=== PATIENT | male | born 1980 | race Caucasian/White ===

== ENCOUNTER 2018-12-19 08:07 | Outpatient (CLI) | payer BC ==
--- NOTE | 2018-12-19 09:59 | MRI ---
MRI CERVICAL SPINE WITHOUT CONTRAST: Date: 12/19/18 HISTORY: Neck pain radiating down left shoulder, arm, and elbow, with numbness in the fingers. FINDINGS: There is loss of cervical lordosis. The vertebral body height and marrow signal are maintained. There are multilevel disc osteophyte complexes and uncovertebral hypertrophic changes, most prominent at C 3-4 level. These result in moderate right-sided neural foraminal stenosis at C2-3 and C3-4 levels, an d mild left-sided neural foraminal stenosis at C3-4 level. There is impingement of the anterior theca l sac at C5-6 and C6-7 levels. No cord impingement or compression is seen. The cervical spinal cord d emonstrates normal course, caliber, and signal. No tonsillar herniation is seen. The paraspinal muscu lature is normal. IMPRESSION: Cervical spondylosis with right-sided moderate neural foraminal stenosis at C2-3 and C3-4 levels, and mild left-sided neural foraminal stenosis at C3-4 level. POS: [facility]
== END 2018-12-19 08:08 | disposition home or self-care (01) ==
LOC: SCSMRI 08:07
PROVIDERS: ATTEND Family Medicine
DX: G56.00 Carpal tunnel syndrome, unspecified upper limb (principal); M47.812 Spondylosis without myelopathy or radiculopathy, cervical region; M48.02 Spinal stenosis, cervical region
CPT/HCPCS: 72141

== ENCOUNTER 2019-04-12 08:13 | Outpatient (CLI) | payer BC ==
[2019-04-12 09:28] LABS: #Basophils 0.1 thou/uL (0.0-0.2); #Eosinphils 0.1 thou/uL (0.0-0.7); #Lymphocytes 2.6 thou/uL (1.20-3.40); #Monocytes 0.6 thou/uL (0.11-0.59); #Neutrophils 4.1 thou/uL (1.40-6.50); %Basophils 0.7 % (0.0-1.0); %Eosinophils 1.3 % (0.0-10.0); %Lymphocytes 34.8 % (21.0-51.0); %Monocytes 8.1 % (0.0-10.0); %Neutrophils 55.1 % (42.0-75.0); Mean Corpuscular HGB CONC 34.5 g/dL (32.0-36.0); Mean Corpuscular Hemoglobin 30.7 pg (27.0-31.0); Mean Corpuscular Volume 88.9 fL (78.0-98.0); Mean Platelet Volume 7.1 fL (7.4-10.4); Platelet Count 333 thou/uL (130-400); RBC Distribution Width 11.6 % (11.5-14.5); Red Blood Cell (RBC) Count 4.88 mill/uL (4.70-6.10); White Blood Cell (WBC) Count 7.3 thou/uL (4.8-10.8)
== END 2019-04-12 08:14 | disposition home or self-care (01) ==
LOC: LABBT 08:13
PROVIDERS: ATTEND Orthopaedic Surgery
DX: Z01.812 Encounter for preprocedural laboratory examination (principal); G56.21 Lesion of ulnar nerve, right upper limb
CPT/HCPCS: 85025

== ENCOUNTER 2019-04-14 06:40 | Day surgery (SDC) | payer BC ==
[2019-04-12 08:38] VITALS: BMI 29.2
[2019-04-14] MEDS ORDERED: Midazolam HCl 2 mg/2 ml Vial ONE (08:19)
[2019-04-14] MEDS ORDERED: Fentanyl 100 MCG/2 ML VIAL ONE ×4 (09:24→11:16)
[2019-04-14] MEDS ORDERED: Bupivacaine PF 0.5% 30 ML VIAL ONE (09:27)
[2019-04-14] MEDS ORDERED: Morphine 4 MG/ML VIAL ONE ×2 (10:46→11:06)
[2019-04-14] MEDS ORDERED: PROPOFOL 200 MG/20 ML VIAL ONE (11:05)
[2019-04-14] MEDS ORDERED: ePHEDrine/0.9% NaCl/PF SYRINGE 50 mg/10 ml ONE (11:05)
[2019-04-14] MEDS ORDERED: Lidocaine 1% PF 5 ML VIAL ONE (11:05)
[2019-04-14] MEDS ORDERED: Ondansetron PF 4 MG/2 ML Vial ONE (11:05)
[2019-04-14] MEDS ORDERED: HYDROcodone/Acetaminophen 5/325 mg Tablet ONE (11:55)
--- NOTE | 2019-04-14 14:58 | OP ---
DATE OF PROCEDURE: 04/14/2019 PREOPERATIVE DIAGNOSIS: Left cubital tunnel syndrome. POSTOPERATIVE DIAGNOSIS: Left cubital tunnel syndrome. PROCEDURES PERFORMED: 1. Left ulnar nerve release and transposition. 2. He was placed in a long-arm splint, left upper extremity. REFERRAL AND INFORMATION AIDE: None. ANESTHESIA: He had a general anesthetic. DISPOSITION: He went to recovery room in stable condition. INDICATIONS: This is a 38-year-old male, who was found to have significant cubital tunnel syndrome on EMG/NCV. At this time, he opted to have surgical release performed. DESCRIPTION OF PROCEDURE: After all appropriate consent forms were explained and signed, he was taken back to the operative room and at this time was given a general anesthetic. Once the level of anesthesia was appropriate, a tourniquet was placed on the left arm and the left upper extremity was prepped and draped in standard surgical fashion. The arm was then exsanguinated and the tourniquet was taken to 250 mmHg. Using loupe magnification, a 15 blade was used to cut down through skin only. Bipolar cautery was used to coagulate any brisk venous bleeding. From here, scissor dissection was used to find the ulnar nerve and release it proximally up the brachium and distally to the first motor branch. There were no masses noted and the nerve itself was found to be in good condition. Once this was done, we placed a couple of 0 Vicryl sutures to close our cubital tunnel and we then placed a moist Ray-Jumana sponge into the wound. Tourniquet was let down. Hemostasis was achieved with the bipolar. We then thoroughly irrigated and dried. Anterior and posterior skin flaps were then infiltrated with Marcaine for postop pain relief and at this time, 2-0 Vicryl and nylon sutures were used to close the skin. A bulky sterile soft tissue dressing was applied and then a long-arm posterior splint was made for the left upper extremity. The patient was then awakened. He was taken to the recovery room in stable condition. All counts were correct at the end of the case and he did receive preoperative IV antibiotics. Job ID: [id number]
== END 2019-04-14 13:10 | disposition home or self-care (01) ==
LOC: SDC 06:40
PROVIDERS: ATTEND Orthopaedic Surgery
PROC: 01N40ZZ Release Ulnar Nerve, Open Approach (ICD-10-PCS; principal; 2019-04-14)
DX: G56.22 Lesion of ulnar nerve, left upper limb (principal); G56.00 Carpal tunnel syndrome, unspecified upper limb; Z79.1 Long term (current) use of non-steroidal anti-inflammatories (NSAID); Z79.899 Other long term (current) drug therapy
CPT/HCPCS: J0690; J2001; J2250; J2270; J2405; J2704; J3010; S0020

== ENCOUNTER 2020-03-18 08:02 | Outpatient (CLI) | payer BC ==
--- NOTE | 2020-03-18 09:48 | MRI ---
MRI OF THE LEFT ELBOW WITHOUT CONTRAST: Date: 03/18/2020 INDICATION: History of lateral epicondylitis, worsening over last year. COMPARISON: None. FINDINGS: There is a moderate intratendinous delaminating tear involving the common extensor origin at the late ral epicondyle consistent with changes of moderate to severe lateral epicondylitis. The ulnar collate ral ligament, lateral collateral ligament, and lateral ulnar collateral ligament are intact. Biceps b rachialis and brachialis insertions are normal appearing. The triceps insertion appears within normal limits. Common flexor origin is normal appearing. There is postprocedural change of an ulnar nerve t ransposition. The ulnar nerve demonstrates some mild thickening and increased T2 signal at the level of the medial humeral epicondyle and returns to a normal caliber nerve and signal intensity in the le quang of the proximal forearm. No bone marrow signal abnormality is evident. IMPRESSION: 1. 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 2. Mild increased diameter and abnormal signal intensity involving the transposed ulnar nerve at the level of the medial humeral epicondyle suspicious for some residual ulnar neuritis. POS: [facility]
== END 2020-03-18 08:03 | disposition home or self-care (01) ==
LOC: SCSMRI 08:02
PROVIDERS: ATTEND Orthopaedic Surgery Hand Surgery
DX: M77.12 Lateral epicondylitis, left elbow (principal); R93.6 Abnormal findings on diagnostic imaging of limbs

== ENCOUNTER 2022-06-16 08:10 | Outpatient (CLI) | payer BC | END 2022-06-16 08:11 | disposition home or self-care (01) | LOC: SCSMRI 08:10 | PROVIDERS: ATTEND Orthopaedic Surgery | DX: M23.91 Unspecified internal derangement of right knee (principal); M22.2X1 Patellofemoral disorders, right knee ==

== ENCOUNTER → 2022-09-21 | Outpatient (CLI) | payer BC | LOC: SLEEPLAB 17:30 | PROVIDERS: ATTEND Family Medicine | DX: G47.33 Obstructive sleep apnea (adult) (pediatric) (principal) | CPT/HCPCS: 95800 ==

== ENCOUNTER 2023-10-28 07:47 | Outpatient (CLI) | payer BC | END 2023-10-28 07:48 | disposition home or self-care (01) | LOC: SCSMRI 07:47 | PROVIDERS: ATTEND Family Medicine | DX: M24.9 Joint derangement, unspecified (principal); M19.011 Primary osteoarthritis, right shoulder; M75.81 Other shoulder lesions, right shoulder; M75.111 Incomplete rotator cuff tear or rupture of right shoulder, not specified as traumatic; M89.511 Osteolysis, right shoulder ==